=== PATIENT | male | born 1945 | race African-American/Black ===

== ENCOUNTER 2017-04-23 10:03 | Emergency (ER) | payer MEDICARE, OTHER ==
[~2017-04-23] VITALS: Ht 172.7 cm; Wt 81.0 kg
[~2017-04-23 10:03] MED LIST: HYDR-3282 PO
[2017-04-23] MEDS ORDERED: MORPHINE SULFATE 10 MG/ML CPJ IM ONE (12:15)
[2017-04-23] MEDS ORDERED: ONDANSETRON 4MG ODT PO ONE (12:15)
[2017-04-23 15:20] VITALS: BP 139/74
== END 2017-04-23 15:24 | disposition home or self-care (01) ==
LOC: ER 12:04
DX: M25.561 Pain in right knee (principal); Z87.891 Personal history of nicotine dependence
CPT/HCPCS: 73562; 96372; 99284; Q0162

== ENCOUNTER 2018-04-30 08:37 | Emergency (ER) | payer MEDICARE, OTHER ==
[~2018-04-30] VITALS: Ht 172.7 cm; Wt 78.0 kg
[2018-04-30 09:44] VITALS: BP 140/72
== END 2018-04-30 09:46 | disposition home or self-care (01) ==
LOC: ER 08:37
DX: S39.011A Strain of muscle, fascia and tendon of abdomen, initial encounter (principal); I10 Essential (primary) hypertension; X50.0XXA Overexertion from strenuous movement or load, initial encounter; Y93.89 Activity, other specified; Y92.89 Other specified places as the place of occurrence of the external cause
CPT/HCPCS: 99283

== ENCOUNTER 2020-09-05 12:08 | Emergency (ER) | payer MEDICARE ==
[~2020-09-05] VITALS: Ht 172.7 cm; Wt 79.0 kg
[2020-09-05 15:41] LABS: CLARITY URINE CLEAR (CLEAR); COLOR URINE DARK YELLOW (YELLOW); KETONES URINE TRACE (NEGATIVE); LEUKOCYTE ESTERASE URINE TRACE (NEGATIVE); NITRITE URINE NEGATIVE (NEGATIVE); OCCULT BLOOD URINE NEGATIVE (NEGATIVE); PH URINE 5.5 (4.5-8.0); PROTEIN URINE NEGATIVE (NEGATIVE); SPECIFIC GRAVITY URINE 1.029 (1.005-1.030)
[2020-09-05 15:59] LABS: EOSINOPHILS % 1.1 % (0.0-5.0); HEMATOCRIT. 41.9 % (42.0-52.0); LYMPHOCYTES % 29.3 % (20.0-50.0); MEAN CORPUSCULAR HEMOGLOBIN 30.7 pg (28.0-32.0); MEAN CORPUSCULAR VOLUME 91.7 fL (80.0-94.0); MEAN PLATELET VOLUME 7.9 fl (7.4-10.4); MONOCYTES % 5.9 % (2.0-8.0); NEUTROPHILS % 62.7 % (40.0-76.0); PLATELET 155 x1000/uL (130-400); RED BLOOD CELL COUNT 4.57 mill/uL (4.7-6.1)
[2020-09-05 16:12] LABS: CHLORIDE 106 mEq/L (98-107)
[2020-09-05 17:06] VITALS: BP 136/82
== END 2020-09-05 17:06 | disposition home or self-care (01) ==
LOC: ER 12:08
DX: R10.30 Lower abdominal pain, unspecified (principal); I10 Essential (primary) hypertension; Z98.890 Other specified postprocedural states
CPT/HCPCS: 36415; 76857; 80053; 81003; 85025; 99284

== ENCOUNTER 2020-09-12 15:02 | Emergency (ER) | payer MEDICARE ==
[~2020-09-12] VITALS: Ht 172.7 cm; Wt 79.0 kg
[~2020-09-12 15:02] MED LIST changes: -HYDR-3282 PO; +HYDR-4348 PO
[2020-09-12] MEDS ORDERED: IBUPROFEN 600MG TABLET PO STA (15:45)
[2020-09-12 16:18] LABS: BASOPHILS % 0.6 % (0.0-2.0); EOSINOPHILS % 1.4 % (0.0-5.0); HEMOGLOBIN. 13.5 g/dL (14.0-18.0); LYMPHOCYTES % 29.5 % (20.0-50.0); MEAN CORPUSCULAR VOLUME 91.3 fL (80.0-94.0); MEAN PLATELET VOLUME 7.9 fl (7.4-10.4); NEUTROPHILS % 62.5 % (40.0-76.0); PLATELET 162 x1000/uL (130-400); RED BLOOD CELL COUNT 4.49 mill/uL (4.7-6.1)
[2020-09-12 16:20] LABS: CHLORIDE 105 mEq/L (98-107)
[2020-09-12 16:50] LABS: CLARITY URINE CLEAR (CLEAR); COLOR URINE YELLOW (YELLOW); KETONES URINE NEGATIVE (NEGATIVE); LEUKOCYTE ESTERASE URINE NEGATIVE (NEGATIVE); NITRITE URINE NEGATIVE (NEGATIVE); OCCULT BLOOD URINE NEGATIVE (NEGATIVE); PH URINE 5.5 (4.5-8.0); PROTEIN URINE NEGATIVE (NEGATIVE); SPECIFIC GRAVITY URINE 1.022 (1.005-1.030); UROBILINOGEN URINE 0.2 E.U./dL (0.2-1.0)
[2020-09-12 19:18] VITALS: BP 148/97
== END 2020-09-12 19:21 | disposition home or self-care (01) ==
LOC: ER 17:45
DX: R10.31 Right lower quadrant pain (principal); I10 Essential (primary) hypertension; Z79.899 Other long term (current) drug therapy; Z98.890 Other specified postprocedural states
CPT/HCPCS: 36415; 74176; 80053; 81003; 85025; 99284

== ENCOUNTER 2020-10-10 13:39 | Emergency (ER) | payer MEDICARE ==
[~2020-10-10] VITALS: Ht 177.8 cm; Wt 70.0 kg
[2020-10-10] MEDS ORDERED: SODIUM CHLORIDE 0.9% 1,000 ML IV ONE (14:30)
[2020-10-10 14:45] LABS: CLARITY URINE CLEAR (CLEAR); COLOR URINE YELLOW (YELLOW); KETONES URINE NEGATIVE (NEGATIVE); LEUKOCYTE ESTERASE URINE NEGATIVE (NEGATIVE); NITRITE URINE NEGATIVE (NEGATIVE); OCCULT BLOOD URINE NEGATIVE (NEGATIVE); PROTEIN URINE NEGATIVE (NEGATIVE); UROBILINOGEN URINE 0.2 E.U./dL (0.2-1.0)
[2020-10-10 15:33] LABS: BASOPHILS % 0.9 % (0.0-2.0); EOSINOPHILS % 0.8 % (0.0-5.0); HEMATOCRIT. 42.2 % (42.0-52.0); LYMPHOCYTES % 27.8 % (20.0-50.0); MEAN CORPUSCULAR HEMOGLOBIN 30.2 pg (28.0-32.0); MEAN CORPUSCULAR VOLUME 91.3 fL (80.0-94.0); MEAN PLATELET VOLUME 9.1 fl (7.4-10.4); MONOCYTES % 7.5 % (2.0-8.0); PLATELET 147 x1000/uL (130-400); RED BLOOD CELL COUNT 4.63 mill/uL (4.7-6.1); RED CELL DISTRIBUTION WIDTH 14.1 % (11.6-14.6)
[2020-10-10 15:44] LABS: CHLORIDE 108 mEq/L (98-107); INR 1.8; PROTHROMBIN TIME 18.2 sec (9.6-11.0)
[2020-10-10] MEDS ORDERED: IOHEXOL-300 100 ML BOTTLE ONE ×2 (17:54→17:55)
[2020-10-10 18:07] VITALS: BP 163/80
== END 2020-10-10 18:09 | disposition home or self-care (01) ==
LOC: ER 14:16
DX: R10.9 Unspecified abdominal pain (principal); R11.2 Nausea with vomiting, unspecified; I10 Essential (primary) hypertension; F17.290 Nicotine dependence, other tobacco product, uncomplicated; Z98.890 Other specified postprocedural states
CPT/HCPCS: 36415; 74177; 80053; 81003; 83605; 83690; 84484; 85025; 85610; 93005; 96360; 99285; J7030; Q9967

== ENCOUNTER 2020-10-25 15:25 | Emergency (ER) | payer MEDICARE ==
[~2020-10-25] VITALS: Ht 167.6 cm; Wt 79.0 kg
[2020-10-25 16:26] LABS: BASOPHILS % 0.7 % (0.0-2.0); CHLORIDE 105 mEq/L (98-107); EOSINOPHILS % 1.5 % (0.0-5.0); HEMATOCRIT. 41.9 % (42.0-52.0); HEMOGLOBIN. 14.1 g/dL (14.0-18.0); LYMPHOCYTES % 41.7 % (20.0-50.0); MEAN CORPUSCULAR HEMOGLOBIN 30.4 pg (28.0-32.0); MEAN CORPUSCULAR VOLUME 90.4 fL (80.0-94.0); MEAN PLATELET VOLUME 8.3 fl (7.4-10.4); MONOCYTES % 7.2 % (2.0-8.0); NEUTROPHILS % 48.9 % (40.0-76.0); PLATELET 154 x1000/uL (130-400); RED BLOOD CELL COUNT 4.63 mill/uL (4.7-6.1); RED CELL DISTRIBUTION WIDTH 14.1 % (11.6-14.6)
[2020-10-25 16:27] VITALS: BP 152/79
[2020-10-25 17:40] LABS: CLARITY URINE CLEAR (CLEAR); COLOR URINE YELLOW (YELLOW); KETONES URINE NEGATIVE (NEGATIVE); LEUKOCYTE ESTERASE URINE NEGATIVE (NEGATIVE); NITRITE URINE NEGATIVE (NEGATIVE); OCCULT BLOOD URINE NEGATIVE (NEGATIVE); PH URINE 6.5 (4.5-8.0); PROTEIN URINE NEGATIVE (NEGATIVE); SPECIFIC GRAVITY URINE 1.021 (1.005-1.030); UROBILINOGEN URINE 0.2 E.U./dL (0.2-1.0)
== END 2020-10-25 18:39 | disposition home or self-care (01) ==
LOC: ER 15:25
DX: R10.2 Pelvic and perineal pain (principal); I10 Essential (primary) hypertension; F41.9 Anxiety disorder, unspecified
CPT/HCPCS: 36415; 74176; 80053; 81003; 85025; 93005; 99285

== ENCOUNTER 2020-12-05 14:49 | Emergency (ER) | payer MEDICARE ==
[~2020-12-05] VITALS: Ht 172.7 cm; Wt 79.0 kg
[2020-12-05 17:06] LABS: BASOPHILS % 0.6 % (0.0-2.0); EOSINOPHILS % 1.6 % (0.0-5.0); HEMATOCRIT. 40.1 % (42.0-52.0); HEMOGLOBIN. 13.2 g/dL (14.0-18.0); LYMPHOCYTES % 30.3 % (20.0-50.0); MEAN CORPUSCULAR HEMOGLOBIN 30.1 pg (28.0-32.0); MEAN CORPUSCULAR VOLUME 91.2 fL (80.0-94.0); MEAN PLATELET VOLUME 8.2 fl (7.4-10.4); MONOCYTES % 6.4 % (2.0-8.0); NEUTROPHILS % 61.1 % (40.0-76.0); PLATELET 153 x1000/uL (130-400); RED CELL DISTRIBUTION WIDTH 14.1 % (11.6-14.6)
[2020-12-05 17:07] LABS: CLARITY URINE CLEAR (CLEAR); COLOR URINE YELLOW (YELLOW); KETONES URINE NEGATIVE (NEGATIVE); LEUKOCYTE ESTERASE URINE NEGATIVE (NEGATIVE); NITRITE URINE NEGATIVE (NEGATIVE); OCCULT BLOOD URINE NEGATIVE (NEGATIVE); PH URINE 6.5 (4.5-8.0); PROTEIN URINE NEGATIVE (NEGATIVE); SPECIFIC GRAVITY URINE 1.022 (1.005-1.030); UROBILINOGEN URINE 0.2 E.U./dL (0.2-1.0)
[2020-12-05 17:08] LABS: CHLORIDE 108 mEq/L (98-107); INR 1.1; PROTHROMBIN TIME 11.5 sec (9.6-11.0)
[2020-12-05] MEDS ORDERED: IOHEXOL-300 100 ML BOTTLE ONE (19:04)
[2020-12-05 21:14] VITALS: BP 143/76
== END 2020-12-05 21:14 | disposition home or self-care (01) ==
LOC: ER 14:49 → CANBEDREQ 21:49
DX: R10.9 Unspecified abdominal pain (principal); K83.8 Other specified diseases of biliary tract; I10 Essential (primary) hypertension; Z98.890 Other specified postprocedural states
CPT/HCPCS: 36415; 74177; 76700; 80053; 81003; 83690; 85025; 85610; 99285; Q9967

== ENCOUNTER 2021-05-14 19:17 | Emergency (ER) | payer MEDICARE ==
[~2021-05-14] VITALS: Ht 172.7 cm; Wt 78.0 kg
[2021-05-14 19:24] VITALS: BP 129/79
== END 2021-05-15 01:47 | disposition left against medical advice (07) ==
LOC: ER 19:17
DX: R68.89 Other general symptoms and signs (principal); Z53.21 Procedure and treatment not carried out due to patient leaving prior to being seen by health care provider